=== PATIENT | female | born 1975 | race Caucasian/White ===

== ENCOUNTER → 2016-12-26 | Outpatient (CLI) | payer BC ==
[2016-12-26 10:48] LABS: CH 30.4; HCT 42.7 % (34.0-46.0); HDW 2.82; HGB 14.3 gm/dL (11.4-16.0); MCH 30.1 pg (25.0-35.0); MCHC 33.5 g/dL (31.0-37.0); MCV 89.9 fL (80.0-100.0); RBC 4.75 m/uL (3.80-5.40); WBC 6.4 k/uL (3.8-10.6)
== END | disposition home or self-care (01) ==
LOC: LABPAT 10:26
PROVIDERS: ATTEND Obstetrics & Gynecology
DX: Z01.818 Encounter for other preprocedural examination (principal)
CPT/HCPCS: 85027

== ENCOUNTER 2017-01-09 07:38 | Day surgery (SDC) | payer BC ==
[2017-01-06 10:41] VITALS: BMI 32.3
--- NOTE | 2017-01-08 20:40 | P.HPOB ---
History of Present Illness H&P Date: 01/08/17 Chief Complaint: ALEJANDRO-2 This is a 41-year-old female 5 para 4 presents for LEEP colposcopy secondary to ALEJANDRO-2 on colposcopy. Her initial Pap smear was 11/21/2016 and showed atypical squamous cells of undetermined significance with positive high risk HPV. Colposcopy was performed on 12/12/2016 and showed benign endocervical curettings and 4:00 biopsy showing moderate dysplasia with ALEJANDRO-2 and HPV changes. She has no other history of abnormal Pap smears in the past. Obstetrical history: . History of 4 vaginal deliveries and 1 miscarriage. Gynecologic history: She does have a history of chlamydia treated in 1992. She has had a new partner for the last year and a half. She is currently using Nexplanon for control. Social history: She is . She is currently working at [employer] in [place]. Review of Systems Constitutional: Reports fatigue, Denies sweats Eyes: denies blurred vision Ears, nose, mouth and throat: Reports vertigo (Occasional) Cardiovascular: Denies chest pain, Denies shortness of breath Respiratory: Denies cough Gastrointestinal: Denies abdominal pain, Denies diarrhea, Denies nausea, Denies vomiting Genitourinary: Reports dysmenorrhea, Denies dysuria, Denies hematuria Menstruation: Reports menses variable Musculoskeletal: Reports low back pain (During menses) Integumentary: Denies pruritus, Denies rash Neurological: Denies numbness, Denies weakness Psychiatric: Reports anxiety, Reports difficulty concentrating, Reports mood swings Past Medical History Past Medical History: Asthma, Osteoarthritis (OA) Additional Past Medical History / Comment(s): ENVIRONMENTAL ALLERGIES.,FATTY TUMOR ON BACK, HERNIATED DISCS, LOW IRON, OCCASIONAL VERTIGO. History of Any Multi-Drug Resistant Organisms: None Reported Past Surgical History: Breast Surgery Additional Past Surgical History / Comment(s): BREAST REDUCTION Past Anesthesia/Blood Transfusion Reactions: Previous Problems w/ Anesthesia, Motion Sickness Additional Past Anesthesia/Blood Transfusion Reaction / Comment(s): UNSURE IF DIFFICULTY WAKING UP - DISCOVERED HEART MURMUR. Past Psychological History: Anxiety Smoking Status: Never smoker Past Alcohol Use History: Occasional Past Drug Use History: None Reported - Past Family History Mother Family Medical History: Hypertension Medications and Allergies Home Medications Medication Instructions Recorded Confirmed Type Rescue Inhaler (Unknown Name) 1 dose INHALATION DIRECTED PRN 01/06/17 History Etonogestrel [Nexplanon ( 01/08/17 History control implant)] Allergies Allergy/AdvReac Type Severity Reaction Status Date / Time No Known Allergies Allergy Verified 01/06/17 10:28 Exam Osteopathic Statement: *. No significant issues noted on an osteopathic structural exam other than those noted in the History and Physical/Consult. HEENT: Within normal limits Heart: Regular rate and rhythm Lungs: Clear to auscultation bilaterally Abdomen: Soft, nontender Pelvic exam: Uterus is mid position with no adnexal masses or tenderness noted. Extremities: Negative Homans Assessment and Plan (1) ALEJANDRO II (cervical intraepithelial neoplasia II) Status: Acute Plan: Proceed with colposcopy with loop electrocautery excision procedure. I have discussed the risks, benefits, and alternative therapies for the above- mentioned procedure and for both sedation/anesthesia as well as necessary blood products administration, if indicated, as they pertain to this patient. The patient has indicated her understanding and acceptance of the risks and procedures discussed.
[~2017-01-09 07:38] MED LIST: DEXAMETHASONE SOD PHOSPHATE 10 MG/ML 1 ML VIAL IV ONE; HYDROmorphone 1 MG/ML 1 ML SYRINGE IVP PRN; LACTATED RINGERS 1,000 ML IV SCH; LIDOCAINE 1% 20 ML VIAL (10MG/ML) FOR IV START INTRADERMA PRN; MIDAZOLAM 2 MG/2 ML VIAL IV PRN; ONDANSETRON 4 MG/2 ML VIAL IVP ONE; Pre Op ABX Message 1 EACH MISC MISCELLANE ONE; SCOPOLAMINE 1.5MG/72HR PATCH TRANSDERM ONE
[2017-01-09] MEDS ORDERED: LACTATED RINGERS 1,000 ML IV ONE (07:44)
[2017-01-09] MEDS ORDERED: fentaNYL (PF) 50 MCG/ML 2 ML AMP ONE (08:26)
[2017-01-09] MEDS ORDERED: MIDAZOLAM 2 MG/2 ML VIAL ONE (08:26)
[2017-01-09] MEDS ORDERED: LIDOCAINE 1% INJ 10MG/ML (20 ML MDV) ONE (08:26)
[2017-01-09] MEDS ORDERED: PROPOFOL 10 MG/ML 20 ML VIAL IV ONE (08:26)
[2017-01-09] MEDS ORDERED: SUCCINYLCHOLINE CHLORIDE 100 MG/5 ML SYR IV ONE (08:26)
[2017-01-09] MEDS ORDERED: FERRIC SUBSULFATE (MONSELS) JAR TOPICAL ONE (08:27)
[2017-01-09] MEDS ORDERED: LIDOCAINE 1%-EPI 1:100,000 20 ML VIAL SUBMUCOSAL ONE (08:29)
[2017-01-09] MEDS ORDERED: BUPIVACAINE (PF) 0.5% 30 ML VIAL SQ ONE (08:29)
--- NOTE | 2017-01-09 08:51 | P.OP ---
Date of Procedure: 01/09/17 Preoperative Diagnosis: ALEJANDRO-2 Postoperative Diagnosis: Cervical dysplasia, to be determined by pathology Procedure(s) Performed: Colposcopy with loop electrocautery excision procedure Anesthesia: NAZA Surgeon: Florence Duke Estimated Blood Loss (ml): 5 Pathology: other (Ectocervix with 12:00 with a stitch, separate piece at 3:00) Condition: stable Disposition: same day Indications for Procedure: This is a 41-year-old female 5 para 4 presents for LEEP colposcopy secondary to ALEJANDRO-2 on colposcopy. Her initial Pap smear was 11/21/2016 and showed atypical squamous cells of undetermined significance with positive high risk HPV. Colposcopy was performed on 12/12/2016 and showed benign endocervical curettings and 4:00 biopsy showing moderate dysplasia with ALEJANDRO-2 and HPV changes. She has no other history of abnormal Pap smears in the past. Operative Findings: Upon colposcopy, no specific abnormalities are noted with acetic acid. There is a Lugol white area noted around the 4:00 border. No mosaicism was noted. Description of Procedure: The patient is taken the operating room where she is placed in the dorsal lithotomy position. She is prepped and draped in the normal sterile fashion. Bladder is drained with a catheter. A coated bivalve speculum was placed in the patient's vagina. Colposcopy is performed using a blue light. Cervix is swabbed with 5% acetic acid. No specific abnormalities are noted. Next the cervix was swabbed with Lugol solution. There is an acetowhite area noted around the 4:00 border however no mosaicism was noted. Cervix was circumferentially injected with a 50-50 mixture of cortical percent Marcaine and 1% lidocaine with epinephrine. Approximately 8 mL are used. Next the large cutting loop was used with 35 W of cutting power to swipe from left to right. There was still noted a small piece at the 3:00 border that was removed with one more swipe. The specimen was labeled at 12 o'clock position with a suture. Next a ball-tipped cautery was used to cauterize the bed left behind. Excellent hemostasis was noted. Monsel solution was applied. All instrument are removed from the vagina. All sponge and needle counts are correct. The patient is taken to recovery room in stable condition.
[2017-01-09] MEDS ORDERED: ACETIC ACID 15 DROPS/ML DROPS MISCELLANE ONE (08:54)
[2017-01-09 09:07] VITALS: RESP 16; TEMP 97
[2017-01-09 10:49] VITALS: BP 114/70; PULSE 66
== END 2017-01-09 11:10 | disposition home or self-care (01) ==
LOC: OR 07:38
PROVIDERS: ATTEND Obstetrics & Gynecology
DX: N87.1 Moderate cervical dysplasia (principal); J45.909 Unspecified asthma, uncomplicated; Z79.899 Other long term (current) drug therapy
CPT/HCPCS: 81025; 88307; 57460; J2250; J1100; J2405; J2001; J3010; J0330; J2704

== ENCOUNTER → 2017-10-18 | Outpatient (CLI) | payer BC ==
--- NOTE | 2017-10-18 13:24 | MR ---
EXAMINATION TYPE: MR lumbar spine wo/w con DATE OF EXAM: 10/18/2017 12:21 PM COMPARISON: NONE HISTORY: Lumbar Disc Deg CONTRAST: The patient was injected with 9.5 mL intravenous Gadavist gadolinium contrast. Multiplanar, MultiSpin echo imaging of the lumbar spine was performed. L1-L2: Normal disc appearance without desiccation. No herniation, protrusion or disc bulging. No ca nal stenosis is present. Foramina are patent bilaterally. L2-L3: Normal disc appearance without desiccation. No herniation, protrusion or disc bulging. No ca nal stenosis is present. Foramina are patent bilaterally. L3-L4: Mild to moderate disc desiccation identified. Left paracentral subligamentous disc herniation mildly effaces the ventral thecal sac and results in mild left foraminal encroachment. No evidence fo r central stenosis. L4-L5: Normal disc appearance without desiccation. No herniation, protrusion or disc bulging. No ca nal stenosis is present. Foramina are patent bilaterally. L5-S1: Severe disc desiccation noted with degenerative endplate marrow changes identified. Broad-base d subligamentous disc herniation with mild effacement ventral thecal sac. No evidence for central dwayne nosis. Bilateral foraminal encroachment right greater than left. Lumbar facet joint arthropathy. Lumbar segments are intact. No paraspinal masses are identified. Conus medullaris has a normal appe arance. No evidence for enhancing mass or pathologic asthma IMPRESSION: 1. Degenerative disc disease as discussed. 2. Disc herniations at L3-4 and L5-S1 as discussed above.
== END | disposition home or self-care (01) ==
LOC: RADMRIMAIN 11:38
PROVIDERS: ATTEND Nurse Practitioner Adult Health
DX: M51.27 Other intervertebral disc displacement, lumbosacral region (principal); M51.37 Other intervertebral disc degeneration, lumbosacral region
CPT/HCPCS: 72158; A9581

== ENCOUNTER 2017-12-09 04:10 | Emergency (ER) | payer BC ==
[2017-12-09] MEDS ORDERED: DIPH,PERTUS(ACELL)TETVAC-LF 0.5 ML VIAL IM ONE (04:34)
[2017-12-09] MEDS ORDERED: LORazepam 1 MG TAB PO STA (04:35)
[2017-12-09] MEDS ORDERED: ASPIRIN-ACET-CAFF 250-250-65MG 1 EACH TAB PO PRN (04:39)
[2017-12-09] MEDS ORDERED: ASPIRIN-ACET-CAFF 250-250-65MG 1 EACH TAB PO STA (04:40)
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
--- NOTE | 2017-12-09 05:33 | XR ---
EXAM: XR Chest, 2 Views CLINICAL HISTORY: Difficulty breathing TECHNIQUE: Frontal and lateral views of the chest. COMPARISON: No relevant prior studies available. FINDINGS: Lungs: Minimal peribronchial cuffing is suggested, which may represent mild pulmonary edema versus inflammatory airways disease. Pleural space: Unremarkable. No pneumothorax. No pleural effusions. Heart: Unremarkable. No cardiomegaly. Mediastinum: Unremarkable. Bones/joints: Unremarkable. IMPRESSION: Minimal peribronchial cuffing is suggested, which may represent minimal pulmonary edema versus inflammatory airways disease.
--- NOTE | 2017-12-09 05:52 | CT ---
EXAM: CT Head Without Intravenous Contrast CLINICAL HISTORY: Headache post trauma TECHNIQUE: Axial computed tomography images of the head/brain without intravenous contrast. DLP is 1592.90 mGy-cm. This CT exam was performed using one or more of the following dose reduction techniques: automated exposure control, adjustment of the mA and/or kV according to patient size, and/or use of iterative reconstruction technique. COMPARISON: 09/20/2017 FINDINGS: Brain: Unremarkable. No hemorrhage. No significant white matter disease. No edema. Ventricles: Unremarkable. No ventriculomegaly. Bones/joints: Unremarkable. No acute fracture. Soft tissues: Unremarkable. Mastoid air cells: Unremarkable as visualized. No mastoid effusion. IMPRESSION: Normal head/brain CT. Critical Value Communications 12/09/17 05:47 Call Doctor Regarding Other, called Dr. Hodges on 12/09 05: 45 (-05:00)
--- NOTE | 2017-12-09 05:57 | CT ---
EXAM: CT Maxillofacial Without Intravenous Contrast CLINICAL HISTORY: Pain post trauma. TECHNIQUE: Axial computed tomography images of the face without intravenous contrast. DLP is 563.00 mGy-cm. This CT exam was performed using one or more of the following dose reduction techniques: automated exposure control, adjustment of the mA and/or kV according to patient size, and/or use of iterative reconstruction technique. COMPARISON: None. FINDINGS: Bones/joints: No acute fracture. Soft tissues: Unremarkable. Orbits: Unremarkable. Sinuses: Tiny air-fluid level seen within the left maxillary sinus. Remaining paranasal sinuses and mastoid air cells are clear. IMPRESSION: 1. No facial fractures. 2. Minimal sinus disease.
[2017-12-09] MEDS ORDERED: IBUPROFEN 600 MG TAB PO STA (06:06)
[2017-12-09 06:16] VITALS: BP 110/65; PULSE 91; RESP 18; TEMP 97.9
== END 2017-12-09 06:14 | disposition home or self-care (01) ==
LOC: EC 04:10
DX: S06.0X1A Concussion with loss of consciousness of 30 minutes or less, initial encounter (principal); S00.83XA Contusion of other part of head, initial encounter; S10.91XA Abrasion of unspecified part of neck, initial encounter; S60.512A Abrasion of left hand, initial encounter; S60.511A Abrasion of right hand, initial encounter; R68.84 Jaw pain; Z79.3 Long term (current) use of hormonal contraceptives; Z23 Encounter for immunization; Y04.0XXA Assault by unarmed brawl or fight, initial encounter; Y92.009 Unspecified place in unspecified non-institutional (private) residence as the place of occurrence of the external cause
CPT/HCPCS: 70450; 70486; 71046; 90471; 90715; 99284

== ENCOUNTER 2019-02-25 06:30 | Day surgery (SDC) | payer BC ==
[2019-02-21 13:17] VITALS: BMI 35.5
--- NOTE | 2019-02-24 17:25 | P.HPOB ---
History of Present Illness H&P Date: 02/24/19 Chief Complaint: Family planning, menorrhagia with irregular cycle This is a 43-year-old female 5 para 4 who presents for laparoscopic bilateral tubal ligation via fulguration along with removal of Nexplanon and dilation and curettage with hysteroscopy and NovaSure endometrial ablation secondary to menorrhagia with irregular cycle. She complains of irregular cycles with the Nexplanon and then when she doesn't have cycles she still has extreme fatigue, mood swings, and back pain. Her menses are lasting at least 7 days and sometimes coming 3 weeks apart. She would like definitive surgical treatment for undesired fertility. She would like laparoscopic tubal ligation and removal of the Nexplanon. In addition she would like I dilation and curettage with hysteroscopy and NovaSure endometrial ablation for her menorrhagia with irregular cycle. She did have a pelvic ultrasound that showed a uterus measuring 9.7 x 5.5 x 4.4 cm with an endometrial stripe thickness of 6 mm. Right ovary did have a simple cyst measuring 2.2 cm. Left ovary appeared normal. Obstetrical history: 5 para 4. History of 1 miscarriage and 4 vaginal deliveries. Gynecologic history: History of Chlamydia treated in 1992. She does have a history of some abnormal Pap smears in the past and did have a LEEP colposcopy in January 2017 for high-grade ALEJANDRO-2. Her last Pap smear was within normal limits with high risk HPV negative. Social history: She is . She has been with the same partner since 2014. She currently works at [employer]. Review of Systems Constitutional: Denies chills, Denies fever Eyes: denies blurred vision, denies pain Ears, nose, mouth and throat: Denies headache, Denies sore throat Cardiovascular: Denies chest pain, Denies shortness of breath Respiratory: Denies cough Gastrointestinal: Reports heartburn Genitourinary: Reports menorrhagia, Reports pelvic pain Menstruation: Reports cycle < 21 days, Reports period heavy Musculoskeletal: Reports myalgias Integumentary: Denies pruritus, Denies rash Neurological: Denies numbness, Denies weakness Psychiatric: Denies anxiety, Denies depression Past Medical History Past Medical History: Asthma, Osteoarthritis (OA) Additional Past Medical History / Comment(s): SL HEART MURMUR. ENVIRONMENTAL ALLERGIES. FATTY TUMOR ON BACK, HERNIATED DISCS, LOW IRON, OCC VERTIGO. BLOATED, GASSY. IRREG, HEAVY MENSES. History of Any Multi-Drug Resistant Organisms: None Reported Past Surgical History: Breast Surgery Additional Past Surgical History / Comment(s): LEEP. BREAST REDUCTION Past Anesthesia/Blood Transfusion Reactions: Previous Problems w/ Anesthesia, Motion Sickness Additional Past Anesthesia/Blood Transfusion Reaction / Comment(s): 2004 DIFFICULTY WAKING UP - DISCOVERED HEART MURMUR. Past Psychological History: Anxiety, Depression Smoking Status: Never smoker Past Alcohol Use History: Occasional Past Drug Use History: None Reported - Past Family History Mother Family Medical History: Hypertension Medications and Allergies Home Medications Medication Instructions Recorded Confirmed Type Etonogestrel [Nexplanon ( 1 applic TD DIRECTED 01/08/17 02/21/19 History control implant)] FLUoxetine HCL [PROzac] 10 mg PO DAILY 02/21/19 02/21/19 History Famotidine [Pepcid] 20 mg PO BID 02/21/19 02/21/19 History Meclizine [Antivert] 25 mg PO TID PRN 02/21/19 02/21/19 History Multivit with Calcium,Iron,Min 1 each PO DAILY 02/21/19 02/21/19 History [Women's Multivitamin] Allergies Allergy/AdvReac Type Severity Reaction Status Date / Time No Known Allergies Allergy Verified 02/21/19 12:52 Exam Osteopathic Statement: *. No significant issues noted on an osteopathic structu ral exam other than those noted in the History and Physical/Consult. HEENT: Within normal limits Heart: Regular rate and rhythm Lungs: Clear to auscultation bilaterally Abdomen: Soft, nontender Pelvic exam: Uterus is mid position, nontender, with no adnexal masses or tenderness palpated. Extremities: Negative Homans. Assessment and Plan (1) Family planning Status: Acute Code(s): Z30.09 - ENCOUNTER FOR OTH GENERAL CNSL AND ADVICE ON CONTRACEPTION SNOMED Code(s): 475255621 (2) Menorrhagia with irregular cycle Status: Acute Code(s): N92.1 - EXCESSIVE AND FREQUENT MENSTRUATION WITH IRREGULAR CYCLE SNOMED Code(s): 885101969 Plan: Plan is to proceed with laparoscopic bilateral tubal ligation via fulguration along with removal of Nexplanon and dilation and curettage with hysteroscopy and NovaSure endometrial ablation. I have discussed the risks, benefits, and alternative therapies for the above- mentioned procedure and for both sedation/anesthesia as well as necessary blood products administration, if indicated, as they pertain to this patient. The patient has indicated her understanding and acceptance of the risks and procedures discussed.
[~2019-02-25 06:30] MED LIST changes: +HYDROmorphone 0.5 MG/0.5 ML SYRINGE IVP PRN; -HYDROmorphone 1 MG/ML 1 ML SYRINGE IVP PRN; -LIDOCAINE 1% 20 ML VIAL (10MG/ML) FOR IV START INTRADERMA PRN; -Pre Op ABX Message 1 EACH MISC MISCELLANE ONE
[2019-02-25] MEDS ORDERED: LIDOCAINE 1% 20 ML VIAL (10MG/ML) FOR IV START INTRADERMA ONE (07:01)
[2019-02-25] MEDS ORDERED: PHENYLEPHRINE-0.9% NACL SYG 1 MG/10 ML SYRINGE ONE (07:30)
[2019-02-25] MEDS ORDERED: NEOSTIGMINE 1 MG/ML 10 ML VIAL ONE (07:30)
[2019-02-25] MEDS ORDERED: GLYCOPYRROLATE 0.2 MG/ML 2 ML VIAL ONE (07:30)
[2019-02-25] MEDS ORDERED: MIDAZOLAM 2 MG/2 ML VIAL ONE (07:30)
[2019-02-25] MEDS ORDERED: PROPOFOL 10 MG/ML 20 ML VIAL IV ONE (07:30)
[2019-02-25] MEDS ORDERED: SUCCINYLCHOLINE CHLORIDE 100 MG/5 ML SYR IV ONE (07:30)
[2019-02-25] MEDS ORDERED: ROCURONIUM BROMIDE 10 MG/ML 10 ML VIAL IV ONE (07:30)
[2019-02-25] MEDS ORDERED: KETOROLAC 30 MG/ML 1 ML VIAL ONE (07:30)
[2019-02-25] MEDS ORDERED: fentaNYL (PF) 50 MCG/ML 2 ML AMP ONE (07:30)
[2019-02-25] MEDS ORDERED: LIDOCAINE 1% INJ 10MG/ML (20 ML MDV) ONE (07:30)
[2019-02-25] MEDS ORDERED: BUPIVACAINE (PF) 0.5% 30 ML VIAL SQ ONE (07:35)
[2019-02-25] MEDS ORDERED: LIDOCAINE 1% INJ 10MG/ML (20 ML MDV) SQ ONE (08:01)
[2019-02-25 08:44] VITALS: TEMP 98
--- NOTE | 2019-02-25 08:46 | P.OP ---
Date of Procedure: 02/25/19 Preoperative Diagnosis: Menorrhagia with irregular cycle Family planning Postoperative Diagnosis: Same Procedure(s) Performed: Dilation and curettage with hysteroscopy and NovaSure endometrial ablation Laparoscopic bilateral tubal ligation via fulguration Removal of Nexplanon implant Anesthesia: SANDRA Surgeon: Florence Duke Estimated Blood Loss (ml): 10 Pathology: other (Endometrial curettings) Condition: stable Disposition: same day Indications for Procedure: This is a 43-year-old female 5 para 4 who presents for laparoscopic bilateral tubal ligation via fulguration along with removal of Nexplanon and dilation and curettage with hysteroscopy and NovaSure endometrial ablation secondary to menorrhagia with irregular cycle. She complains of irregular cycles with the Nexplanon and then when she doesn't have cycles she still has extreme fatigue, mood swings, and back pain. Her menses are lasting at least 7 days and sometimes coming 3 weeks apart. She would like definitive surgical treatment for undesired fertility. She would like laparoscopic tubal ligation and removal of the Nexplanon. In addition she would like I dilation and curettage with hysteroscopy and NovaSure endometrial ablation for her menorrhagia with irregular cycle. She did have a pelvic ultrasound that showed a uterus measuring 9.7 x 5.5 x 4.4 cm with an endometrial stripe thickness of 6 mm. Right ovary did have a simple cyst measuring 2.2 cm. Left ovary appeared normal. Operative Findings: Uterus is mid position and sounded to 11 cm. Cervix is sounded to 4 cm. No adnexal masses are palpated. Upon laparoscopy, both tubes and ovaries appeared normal. Uterus appeared normal size. Description of Procedure: The patient is taken to the operating room. She is placed in the dorsal lithotomy position after general anesthesia was given. She is prepped and draped in the normal sterile fashion. Bladder is drained with a catheter and then removed. Pelvic exam is performed under anesthesia. Uterus is found to be mid position with no adnexal masses. She is placed in slight Trendelenburg position. A right angle retractor is used to visualize the cervix. The anterior lip of the cervix is grasped with a single-tooth tenaculum. Cervix is sounded to 4 cm. Uterus is sounded to 11 cm. Cervix is gently dilated with Corbin dilators until a hysteroscope could be passed. Hysteroscopy is performed using normal saline. The above noted findings are noted. Next a polyp forceps is introduced. A minimal amount of tissue was obtained. Next medium-sized size sharp curette was placed. A moderate amount of endometrial curettings were obtained. Next NovaSure array was inserted into the endometrial cavity. Length was set at 6.5 cm and width was determined to be 3.2 cm. Next cavity assessment was completed and passed on the first try. Next NovaSure array was fired at 114 W for if T3 seconds. Next the array was removed, inspected and then discarded. Next the hysteroscope was reinserted. Uniform charring was noted. Pictures were taken. Hysteroscope was removed. Next the kroner uterine manipulator was inserted and the balloon was inflated. Single-tooth tenaculum was removed from the anterior lip of the cervix. Minimal bleeding was noted. All other instruments removed from the vagina. Sponge counts were correct. Gloves are changed. Next attention was turned to the abdomen. The infraumbilical fold was grasped in transverse fashion with 2 Allis clamps. A small transverse incision was made with a scalpel. A hemostat was used to carry the incision down to the underlying layer of fascia. A towel clip was placed above the umbilicus for retraction. A 11 mm disposable bladeless trocar was then inserted into the peritoneal cavity under direct visualization. Once inside, pneumoperitoneum was achieved with CO2 gas. The insert was removed and the camera was placed. Intraperitoneal placement was confirmed. No bleeding was noted. Next the patient was placed in Trendelenburg position. A small stab incision was made suprapubically and a 5 mm disposable bladeless trocar was inserted into the peritoneal cavity under direct visualization. Once inside pelvic contents were inspected. Next a bipolar Kleppinger instrument was placed through the inferior trocar and the midportion of each tube was brought away from other structures and completely fulgurated on approximate 2-3 cm segment of each tube. Excellent hemostasis was noted. A picture was taken. Pneumoperitoneum was released after the inferior trocar was removed under direct visualization. The upper trocar was then removed. The fascial incision was closed with 0 Vicryl suture in interrupted [id number] stitch. The skin incisions were then closed with 4- 0 Vicryl suture in a subcuticular fashion. Incisions were then injected with half percent Marcaine. Approximately 6 mL were used. Next attention was turned to her left arm. The Nexplanon was identified under arm. The area was prepped with Betadine. Approximately 2 mL of 1% lidocaine with epi was injected underneath the skin just below the tip of the Nexplanon implant. Next a 15 blade was used to cut just underneath the skin below the Nexplanon. Next the Nexplanon was moved to the incision manually and then grasped with a hemostat and removed completely. Arm was washed with water and then a Band-Aid was placed. Next the kroner uterine manipulator was removed. Minimal bleeding was noted. All sponge and needle counts are correct. The patient is then taken to recovery room in stable condition.
[2019-02-25 09:17] VITALS: RESP 18
[2019-02-25] MEDS ORDERED: HYDROcodone/APAP 5-325MG 1 EACH TAB PO ONE (09:30)
[2019-02-25 09:53] VITALS: BP 115/72; PULSE 75
== END 2019-02-25 10:22 | disposition home or self-care (01) ==
LOC: OR 06:30
PROVIDERS: ATTEND Obstetrics & Gynecology
DX: N92.0 Excessive and frequent menstruation with regular cycle (principal); Z30.2 Encounter for sterilization; Z45.89 Encounter for adjustment and management of other implanted devices; Z79.3 Long term (current) use of hormonal contraceptives; N83.291 Other ovarian cyst, right side; Z87.410 Personal history of cervical dysplasia; J45.909 Unspecified asthma, uncomplicated; M19.90 Unspecified osteoarthritis, unspecified site; R01.1 Cardiac murmur, unspecified; H81.49 Vertigo of central origin, unspecified ear; F41.9 Anxiety disorder, unspecified; F32.9 Major depressive disorder, single episode, unspecified; E61.1 Iron deficiency; Z79.899 Other long term (current) drug therapy; Z91.048 Other nonmedicinal substance allergy status
CPT/HCPCS: 81025; 88305; 58563; 58670; 11982; J2250; J1100; J2710; J2405; J2001; J3010; J1885; J2370; J0330; J2704; J1170

== ENCOUNTER → 2019-03-28 | Outpatient (CLI) | payer BC ==
[~2019-03-28] MED LIST changes: -DEXAMETHASONE SOD PHOSPHATE 10 MG/ML 1 ML VIAL IV ONE; -HYDROmorphone 0.5 MG/0.5 ML SYRINGE IVP PRN; -LACTATED RINGERS 1,000 ML IV SCH; -MIDAZOLAM 2 MG/2 ML VIAL IV PRN; -ONDANSETRON 4 MG/2 ML VIAL IVP ONE; +Pre Op ABX Message 1 EACH MISC MISCELLANE ONE; -SCOPOLAMINE 1.5MG/72HR PATCH TRANSDERM ONE
--- NOTE | 2019-04-01 10:04 | MM ---
Reason for exam: screening (asymptomatic). Baseline mammogram. History: Reductions of both breasts, 2004. Physical Findings: Nurse did not find any significant physical abnormalities on exam. MG 3D Screening Mammo W/Cad Bilateral CC and MLO view(s) were taken. XCCL view(s) were taken of the left breast. There are scattered fibroglandular densities. Bilateral mammoplasty changes. Far posterior and lateral asymmetric density on the left does not seem to persist on XCCL view. There is an asymmetric density superiorly and posteriorly on the MLO view. These results were verbally communicated with the patient and result sheet given to the patient on 03/28/19. ASSESSMENT: Incomplete: need additional imaging evaluation, BI-RAD 0 RECOMMENDATION: Special view mammogram and ultrasound of the left breast. (upper outer quadrant and targeted to pain)
--- NOTE | 2019-04-01 10:05 | MM ---
Reason for exam: additional evaluation requested from abnormal screening. History: Reductions of both breasts, 2004. Physical Findings: Breast exam preformed at baseline screening. MG 3D Work Up W/Cad LT Spot compression MLO and LM view(s) were taken of the left breast. There are scattered fibroglandular densities. Subtle asymmetric density persists but becomes less defined. These results were verbally communicated with the patient and result sheet given to the patient on 03/28/19. ASSESSMENT: Incomplete: need additional imaging evaluation, BI-RAD 0 RECOMMENDATION: Ultrasound of the left breast. (upper outer quadrant)
--- NOTE | 2019-04-01 10:08 | USB ---
Reason for exam: additional evaluation requested from abnormal screening. History: Reductions of both breasts, 2005. US Breast Workup Limited LT Left limited breast ultrasound including focal area of concern, retroareolar and axilla demonstrates a 0.6 x 0.2 x 0.6cm mixed lesion at 1 o'clock, possibly complicated cyst, 6 month follow up recommended. These results were verbally communicated with the patient and result sheet given to the patient on 03/28/19. ASSESSMENT: Probably benign, BI-RAD 3 RECOMMENDATION: Follow-up diagnostic mammogram and ultrasound of the left breast in 6 months. (upper outer quadrant)
== END | disposition home or self-care (01) ==
LOC: RADMAMWWP 13:01
PROVIDERS: ATTEND Obstetrics & Gynecology
DX: Z12.31 Encounter for screening mammogram for malignant neoplasm of breast (principal); R92.8 Other abnormal and inconclusive findings on diagnostic imaging of breast
CPT/HCPCS: 77061; 77063; 77065; 77067